=== PATIENT | female | born 2000 | race Caucasian/White ===

== ENCOUNTER 2020-11-14 07:14 | Day surgery (SDC) | payer OTHER ==
[2020-11-14] MEDS ORDERED: Morphine 4 MG/ML VIAL ONE ×2 (07:57→09:27)
[2020-11-14 08:26] LABS: Bacteria/HPF None Seen HPF (None Seen); Bilirubin Negative (Negative); Blood, Urine Negative (Negative); Clarity Clear (Clear); Glucose, Urine (Dipstick) Normal (Negative); Ketone, Urine Negative (Negative); Leukocyte 25 Leu/uL (Negative); Nitrite Negative (Negative); Pregnancy Test - Urine (BHCG) Negative (Negative); Pregu Control Background? CLEAR/WHITE (CLR/WHITE); Pregu Control Bar Appear? YES (CONTROL BAR); Protein, Urine (Dipstick) Negative (Neg-Trace); RBC/HPF 0-3 HPF (0-3); Specific Gravity 1.021 (1.002-1.036); Specific Gravity, Urine 1.021 (1.002-1.036); Urobilinogen Normal mg/dL (Less than 2)
[2020-11-14 08:29] LABS: #Basophils 0.1 thou/uL (0.0-0.2); #Eosinphils 0.1 thou/uL (0.0-0.7); #Lymphocytes 2.8 thou/uL (1.20-3.40); #Monocytes 1.5 thou/uL (0.11-0.59); #Neutrophils 15.2 thou/uL (1.40-6.50); %Basophils 0.4 % (0.0-1.0); %Eosinophils 0.4 % (0.0-10.0); %Lymphocytes 14.1 % (28.0-48.0); %Monocytes 7.7 % (0.0-4.0); %Neutrophils 77.4 % (31.0-61.0); Mean Corpuscular HGB CONC 33.3 g/dL (32.0-36.0); Mean Corpuscular Volume 90.1 fL (78.0-98.0); Mean Platelet Volume 7.4 fL (7.4-10.4); Platelet Count 300 thou/uL (130-400); RBC Distribution Width 11.1 % (11.5-14.5); Red Blood Cell (RBC) Count 4.34 mill/uL (4.00-5.20); White Blood Cell (WBC) Count 19.6 thou/uL (4.8-10.8)
[2020-11-14 08:51] LABS: ALT (SGPT) 10 U/L (8-55); AST (SGOT) 11 U/L (5-34); Alkaline Phosphatase 57 U/L (40-100); Anion Gap 11 mmol/L (10-20); BUN (Urea Nitrogen) 11 mg/dL (7.0-18.7); Bilirubin, Total 0.2 mg/dL (0.2-1.2); Calc. Creatinine Clearance 0 mL/min (70-130); Calcium 9.4 mg/dL (7.8-10.44); Carbon Dioxide 26 mmol/L (22-29); Chloride 105 mmol/L (98-107); Globulin 2.8 g/dL (2.4-3.5); Glucose 113 mg/dL (70-105); Lipase 9 U/L (8-78); Potassium 3.9 mmol/L (3.5-5.1); Protein, Total 6.8 g/dL (6.0-8.3); Sodium 138 mmol/L (136-145)
[2020-11-14] MEDS ORDERED: Piperacillin/Tazobactam 3.375 GM VIAL ONE ×2 (09:48→15:29)
[2020-11-14] MEDS ORDERED: Ondansetron PF 4 MG/2 ML Vial ONE ×2 (10:26→12:28)
[2020-11-14 10:32] LABS: SARS-CoV-2 NAA Rapid Test Not Detected (NotDetected)
[2020-11-14] MEDS ORDERED: Lidocaine 1% w/Epinephrine 1:100K 20 ML VIAL ONE (12:04)
[2020-11-14] MEDS ORDERED: Bupivacaine 0.25% HCL 30 ML VIAL ONE (12:04)
[2020-11-14] MEDS ORDERED: Midazolam HCl 2 mg/2 ml Vial ONE (12:05)
[2020-11-14] MEDS ORDERED: Fentanyl 100 MCG/2 ML VIAL ONE ×2 (12:07→13:50)
[2020-11-14] MEDS ORDERED: PROPOFOL 200 MG/20 ML VIAL ONE (12:28)
[2020-11-14] MEDS ORDERED: Dexamethasone 20 MG/5 ML VIAL ONE (12:28)
[2020-11-14] MEDS ORDERED: Rocuronium Bromide 10 MG/ML (10ML VIAL) ONE (12:28)
[2020-11-14] MEDS ORDERED: Lidocaine 1% PF 5 ML VIAL ONE (12:28)
[2020-11-14] MEDS ORDERED: Ketorolac Tromethamine 30 MG/ML VIAL ONE (12:28)
[2020-11-14] MEDS ORDERED: Succinylcholine 200 MG/10 ml SYRINGE FS ONE (12:28)
[2020-11-14] MEDS ORDERED: Iopamidol-370 76% 500 ML 1 ML ONE (12:45)
[2020-11-14] MEDS ORDERED: HYDROcodone/Acetaminophen 5/325 mg Tablet ONE (14:54)
[2020-11-14] MEDS ORDERED: Sodium Chloride 0.9% 100 ML ONE (15:29)
== END 2020-11-14 17:00 | disposition home or self-care (01) ==
LOC: ERS 07:14 → SDC 10:23
PROVIDERS: ATTEND Surgery
PROC: 0DTJ4ZZ Resection of Appendix, Percutaneous Endoscopic Approach (ICD-10-PCS; principal; 2020-11-14)
DX: K35.80 Unspecified acute appendicitis (principal); F17.210 Nicotine dependence, cigarettes, uncomplicated; G40.909 Epilepsy, unspecified, not intractable, without status epilepticus; Z79.899 Other long term (current) drug therapy; Z91.010 Allergy to peanuts; Z91.018 Allergy to other foods; Z20.822 Contact with and (suspected) exposure to COVID-19
CPT/HCPCS: 36415; 74177; 76705; 80053; 81003; 81015; 81025; 83690; 85025; 88304; 96365; 96375; 96376; J1100; J1885; J2250; J2270; J2405; J2543; J2704; J3010; J3490; Q9967; S0020; U0002